=== PATIENT | male | born 1965 | race Caucasian/White ===

== ENCOUNTER 2023-06-19 11:48 | Emergency (ER) | payer SELFPAY ==
[2023-06-19] MEDS ORDERED: Acetaminophen/HYDROcodone 325-5 MG Tab PO ONE (12:10)
[2023-06-19] MEDS ORDERED: Ondansetron 4 MG Tab.DIS PO ONE (12:10)
== END 2023-06-19 13:02 | disposition home or self-care (01) ==
LOC: MW.ED 11:48 → EDBD 11:48 → MW.ED 13:02
DX: G43.909 Migraine, unspecified, not intractable, without status migrainosus (principal); Z76.0 Encounter for issue of repeat prescription; Z87.891 Personal history of nicotine dependence
CPT/HCPCS: 99283; A9270